=== PATIENT | male | born 1975 | race Caucasian/White ===

== ENCOUNTER 2017-01-10 22:10 | Emergency (ER) | payer BC, OTHER ==
[~2017-01-10] VITALS: Ht 167.6 cm; Wt 91.6 kg
[2017-01-10 22:15] VITALS: TEMP 36.5; Ht 167.6 cm; Wt 91.6 kg
[2017-01-11 00:02] VITALS: BP 132/84; PULSE 74; O2SAT 98
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
== END 2017-01-11 00:01 | disposition home or self-care (01) ==
LOC: C.EDB 22:12
DX: Z04.1 Encounter for examination and observation following transport accident (principal); V43.52XA Car driver injured in collision with other type car in traffic accident, initial encounter